=== PATIENT | male | born 2000 | race African-American/Black ===

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

== ENCOUNTER 2018-05-26 17:12 | Emergency (ER) | payer MEDICAID ==
[2018-05-26 17:28] VITALS: BP 124/72
--- NOTE | 2018-05-26 17:41 | EDM.PDOC ---
<Paul Bautista - Last Filed: 05/26/18 17:36> ED HPI GENERAL MEDICAL PROBLEM - General Chief Complaint: Genitourinary Problem Stated Complaint: TROUBLE URINATING Time Seen by Provider: 05/26/18 17:25 Source of Information: Reports: Patient History Limitations: Reports: No Limitations - History of Present Illness INITIAL COMMENTS - FREE TEXT/NARRATIVE: Patient presents reporting urinary frequency causing him to urinate 3-4 times per hour during the day and wakes him up at night occasionally. This has been occuring for the past couple of months. He works at [employer] and the frequent urination is making work difficult. He denies abdominal pain, testicualr pain, hematuria, discharge, fever, chills, or sweats. He is sexually active with one partner but reports using protection. Onset: Other (past couple of months) Associated Symptoms: Reports: No Other Symptoms. Denies: Cough, Fever/Chills, Malaise, Nausea/Vomiting - Related Data Allergies Allergy/AdvReac Type Severity Reaction Status Date / Time No Known Allergies Allergy Verified 05/26/18 17:27 Home Meds: Home Meds Cephalexin [Keflex] 500 mg PO QID #28 capsule 08/05/17 [Rx] Sertraline? 08/05/17 [History] Nitrofurantoin Monohyd/M-Cryst [Macrobid 100 mg Capsule] 100 mg PO BID #10 capsule 05/26/18 [Rx] Past Medical History - Past Health History Medical/Surgical History: Denies Medical/Surgical History Psychiatric History: Reports: ADD, Autism, Depression, Panic Attack, Suicide Attempt Social & Family History - Family History Musculoskeletal: Reports: Arthritis - Tobacco Use Smoking Status *Q: Never Smoker - Caffeine Use Caffeine Use: Reports: Soda, Tea ED ROS GENERAL - Review of Systems Constitutional: Reports: No Symptoms. Denies: Fever, Chills, Malaise, Fatigue, Night Sweats, Diaphoresis Respiratory: Reports: No Symptoms Cardiovascular: Reports: No Symptoms Endocrine: Reports: Polyuria. Denies: Polydypsia GI/Abdominal: Reports: No Symptoms : Reports: Frequency (3-4 times per hour during the day). Denies: Discharge, Dysuria, Hematuria, Pain, Urgency, Urinary Retention ED EXAM, RENAL/ - Physical Exam Exam: See Below Exam Limited By: No Limitations General Appearance: Alert, WD/WN, No Apparent Distress Respiratory/Chest: No Respiratory Distress, Lungs Clear, Normal Breath Sounds Cardiovascular: Regular Rate, Rhythm, No Murmur GI/Abdominal: Normal Bowel Sounds, Soft, Non-Tender, No Mass (Male) Exam: Deferred Course - Vital Signs Last Recorded V/S: Last Vital Signs Temp 98.5 F 05/26/18 17:23 Pulse 87 05/26/18 17:23 Resp 16 05/26/18 17:23 BP 124/72 05/26/18 17:23 Pulse Ox 98 05/26/18 17:23 - Orders/Labs/Meds Orders: Active Orders 24 hr Category Date Time Status CULTURE URINE [RM] Stat Lab 05/26/18 18:31 Ordered UA W/MICROSCOPIC [URIN] Stat Lab 05/26/18 17:40 Ordered Labs: Laboratory Tests 05/26/18 Range/Units 17:40 Urine Color Yellow (Yellow) Urine Appearance Cloudy H (Clear) Urine pH 6.0 (5.0-8.0) Ur Specific [place] > or = 1.030 (1.005-1.030) Urine Protein 2+ H (Negative) Urine Glucose (UA) Negative (Negative) Urine Ketones Trace H (Negative) Urine Occult Blood Trace-intact H (Negative) Urine Nitrite Negative (Negative) Urine Bilirubin 1+ H (Negative) Urine Urobilinogen 1.0 (0.2-1.0) Ur Leukocyte Esterase 1+ H (Negative) Urine RBC 0-5 (0-5) /hpf Urine WBC 50-75 H (0-5) /hpf Urine WBC Clumps Moderate (NOT SEEN) /hpf Ur Epithelial Cells 0-5 (0-5) /hpf Urine Bacteria Moderate H (FEW) /hpf Urine Mucus Moderate H (FEW) /hpf Departure - Departure Disposition: Home, Self-Care 01 Clinical Impression: UTI, Urinary tract infectious disease - Discharge Information Prescriptions: Nitrofurantoin Monohyd/M-Cryst [Macrobid 100 mg Capsule] 100 mg PO BID #10 capsule Referrals: PCP,None [Primary Care Provider] - Soledad Simon MD [Physician] - 1 Week Forms: ED Department Discharge, ED Return to Work/School Form Additional Instructions: Drink plenty of fluids. Take the macrobid 2 times per day for 5 days. Please return if you are worse. - My Orders Last 24 Hours: My Active Orders 05/26/18 17:40 UA W/MICROSCOPIC [URIN] Stat 05/26/18 18:31 CULTURE URINE [RM] Stat - Assessment/Plan Last 24 Hours: My Active Orders 05/26/18 17:40 UA W/MICROSCOPIC [URIN] Stat 05/26/18 18:31 CULTURE URINE [RM] Stat <Melo Machado - Last Filed: 05/26/18 18:41> ED ROS GENERAL - Review of Systems Review Of Systems: See Below ED EXAM, RENAL/ - Physical Exam Exam: See Below Course - Re-Assessments/Exams Free Text/Narrative Re-Assessment/Exam: 05/26/18 18:36 I examined the patient and I agree with Paul's assessment and plan. His UA shows no UTI. Departure - Departure Time of Disposition: 18:40 Condition: Good - Discharge Information *PRESCRIPTION DRUG MONITORING PROGRAM REVIEWED*: Not Applicable *COPY OF PRESCRIPTION DRUG MONITORING REPORT IN PATIENT [place]ILIA: Not Applicable
== END 2018-05-26 18:44 | disposition home or self-care (01) ==
LOC: JD.ED 17:12
DX: N39.0 Urinary tract infection, site not specified (principal); Z79.899 Other long term (current) drug therapy
CPT/HCPCS: 81001; 87086; 99283

== ENCOUNTER 2018-11-27 15:28 | Emergency (ER) | payer SELFPAY ==
[2018-11-27 17:03] LABS: ACETAMINOPHEN 0 ug/mL (10-30)
[2018-11-27 18:49] VITALS: BP 106/55
--- NOTE | 2018-11-27 19:47 | EDM.PDOCBH ---
ED HPI GENERAL MEDICAL PROBLEM - General Chief Complaint: Behavioral/Psych Stated Complaint: [facility] Time Seen by Provider: 11/27/18 16:00 Source of Information: Reports: Patient History Limitations: Reports: No Limitations - History of Present Illness INITIAL COMMENTS - FREE TEXT/NARRATIVE: 18-year-old male arrives via [facility] for evaluation and treatment of a suspected overdose. Reportedly the patient states he told his mother he took 12 50 mg Zoloft tablets one hour prior to arrival in the ER.. Patient has with him a bottle of Zoloft 50 mg tabs #30 prescribed in February. He clearly has not been taking these as prescribed. He is unable to tell me exactly how many were in the bottle . He is unable to me exactly how many he took tonight. He states that he has been having difficulty with the mother of his child. He reports being stressed and angry. States he wanted to sleep and this is why he took the Zoloft. This point he is denying any symptoms. No headaches, abdominal pain, nausea or vomiting. No chest pain. Patient reports this was not a suicide attempt. He is denying being actively suicidal or homicidal at this time. Has been suicidal in the past but denies this currently. Poison control consulted upon arrival to the ER. Recommended monitoring for 8 h for any signs of tachycardia and QT prolongation. Recommend EKG and basic labs. - Related Data Allergies Allergy/AdvReac Type Severity Reaction Status Date / Time No Known Allergies Allergy Verified 05/26/18 17:27 Home Meds: Home Meds Sertraline [Zoloft] 50 mg PO DAILY 06/17/18 [History] Past Medical History - Past Health History Medical/Surgical History: Denies Medical/Surgical History Psychiatric History: Reports: ADD, Autism, Depression, Panic Attack, Suicide Attempt, Suicidal Ideation Social & Family History - Family History Family Medical History: Noncontributory Musculoskeletal: Reports: Arthritis - Tobacco Use Smoking Status *Q: Current Some Day Smoker Years of Tobacco use: 1 Packs/Tins Daily: 0.5 - Caffeine Use Caffeine Use: Reports: Energy Drinks, Soda Other Caffeine Use: daily - Recreational Drug Use Recreational Drug Use: Yes Drug Use in Last 12 Months: No Recreational Drug Type: Reports: Marijuana/Hashish ED ROS GENERAL - Review of Systems Review Of Systems: See Below Cardiovascular: Denies: Chest Pain GI/Abdominal: Denies: Abdominal Pain, Nausea, Vomiting ED EXAM, BEHAVIORAL HEALTH - Physical Exam Exam: See Below Exam Limited By: No Limitations General Appearance: Alert, WD/WN, No Apparent Distress Throat/Mouth: Normal Inspection, Normal Voice, No Airway Compromise Respiratory/Chest: No Respiratory Distress, Lungs Clear, Normal Breath Sounds Cardiovascular: Normal Peripheral Pulses, Regular Rate, Rhythm, No Murmur GI/Abdominal: Normal Bowel Sounds, Soft, Non-Tender Neurological: Alert, Normal Mood/Affect, Normal Cognition Psychiatric: Alert, Normal Affect, Normal Mood. No: Depressed Mood, Tearful, Poor Eye Contact, Uncooperative, Homicidal Thoughts, Suicidal Plan, Suicidal Thoughts Skin Exam: Warm, Dry, Normal color EKG INTERPRETATION EKG Date: 11/27/18 Time: 16:57 Rhythm: NSR Rate (Beats/Min): 57 [place]: Normal P-Wave: Present QRS: Normal ST-T: Normal QT: Normal EKG Interpretation Comments: NSR at 57 bpm. QTc normal at 373. Reviewed by myself and Dr. Rachel. COURSE, BEHAVIORAL HEALTH COMP - Course Vital Signs: Last Vital Signs Temp 97.5 F 11/27/18 15:35 Pulse 65 11/27/18 18:48 Resp 20 11/27/18 18:48 BP 106/55 L 11/27/18 18:48 Pulse Ox 99 11/27/18 18:48 Orders, Labs, Meds: Active Orders 24 hr Category Date Time Status Cardiac Monitoring [RC] . DIRECTED Care 11/27/18 16:09 Active EKG Documentation Completion [RC] ASDIRECTED Care 11/27/18 16:10 Active EKG 12 Lead [EK] Stat Ther 11/27/18 16:09 Ordered Laboratory Tests 11/27/18 11/27/18 11/27/18 Range/Units 16:25 16:25 16:25 WBC 4.31 (4.23-9.07) K/mm3 RBC 4.94 (4.63-6.08) M/mm3 Hgb 13.4 L (13.7-17.5) gm/L Hct 40.9 (40.1-51.0) % MCV 82.8 (79.0-92.2) fl MCH 27.1 (25.7-32.2) pg MCHC 32.8 (32.2-35.5) g/dl RDW Std Deviation 37.5 (35.1-43.9) fL Plt Count 157 L (163-337) K/mm3 MPV 10.6 (9.4-12.3) fl Neut % (Auto) 47.3 (34.0-67.9) % Lymph % (Auto) 42.0 (21.8-53.1) % [place] % (Auto) 7.2 (5.3-12.2) % Eos % (Auto) 2.6 (0.8-7.0) Baso % (Auto) 0.7 (0.1-1.2) % Neut # (Auto) 2.04 (1.78-5.38) K/mm3 Lymph # (Auto) 1.81 (1.32-3.57) K/mm3 [place] # (Auto) 0.31 (0.30-0.82) K/mm3 Eos # (Auto) 0.11 (0.04-0.54) K/mm3 Baso # (Auto) 0.03 (0.01-0.08) K/mm3 Sodium 143 (136-145) mEq/L Potassium 3.7 (3.5-5.1) mEq/L Chloride 104 (98-107) mEq/L Carbon Dioxide 31 (21-32) mEq/L Anion Gap 11.7 (5-15) BUN 15 (7-18) mg/dL Creatinine 1.2 (0.7-1.3) mg/dL Est Cr Clr Drug Dosing 88.20 mL/min Estimated GFR (MDRD) > 60 (>60) mL/min BUN/Creatinine Ratio 12.5 L (14-18) Glucose 92 (74-106) mg/dL Calcium 9.2 (8.5-10.1) mg/dL Total Bilirubin 0.4 (0.2-1.0) mg/dL AST 15 (15-37) U/L ALT 17 (16-63) U/L Alkaline Phosphatase 79 (46-116) U/L Total Protein 7.3 (6.4-8.2) g/dl Albumin 4.1 (3.4-5.0) g/dl Globulin 3.2 gm/dL Albumin/Globulin Ratio 1.3 (1-2) TSH 3rd Generation 0.807 (0.516-4.13) uIU/mL Salicylates 4.1 (2.8-20) mg/dL Urine Opiates Screen (VEMLVP=733) Ur Buprenorphine Scrn (CUTOFF=10) Ur Oxycodone Screen (BOB2KO=117) Urine Methadone Screen (BFB6WE=999) Ur Propoxyphene Screen (FMFKTA=895) Acetaminophen 0 L (10-30) ug/mL Ur Barbiturates Screen (XEGTBE=498) Ur Tricyclics Screen (JFBNOM=355) Ur Phencyclidine Scrn (CUTOFF=25) Ur Amphetamine Screen (LWICPG=474) U Methamphetamines Scrn (WYJUAT=652) U Benzodiazepines Scrn (NFHWWA=255) U Cocaine Metab Screen (LNZWXC=734) U Marijuana (THC) Screen (CUTOFF=50) Ethyl Alcohol 0.00 (0.00) gm% 11/27/18 Range/Units 17:55 WBC (4.23-9.07) K/mm3 RBC (4.63-6.08) M/mm3 Hgb (13.7-17.5) gm/L Hct (40.1-51.0) % MCV (79.0-92.2) fl MCH (25.7-32.2) pg MCHC (32.2-35.5) g/dl RDW Std Deviation (35.1-43.9) fL Plt Count (163-337) K/mm3 MPV (9.4-12.3) fl Neut % (Auto) (34.0-67.9) % Lymph % (Auto) (21.8-53.1) % [place] % (Auto) (5.3-12.2) % Eos % (Auto) (0.8-7.0) Baso % (Auto) (0.1-1.2) % Neut # (Auto) (1.78-5.38) K/mm3 Lymph # (Auto) (1.32-3.57) K/mm3 [place] # (Auto) (0.30-0.82) K/mm3 Eos # (Auto) (0.04-0.54) K/mm3 Baso # (Auto) (0.01-0.08) K/mm3 Sodium (136-145) mEq/L Potassium (3.5-5.1) mEq/L Chloride (98-107) mEq/L Carbon Dioxide (21-32) mEq/L Anion Gap (5-15) BUN (7-18) mg/dL Creatinine (0.7-1.3) mg/dL Est Cr Clr Drug Dosing mL/min Estimated GFR (MDRD) (>60) mL/min BUN/Creatinine Ratio (14-18) Glucose (74-106) mg/dL Calcium (8.5-10.1) mg/dL Total Bilirubin (0.2-1.0) mg/dL AST (15-37) U/L ALT (16-63) U/L Alkaline Phosphatase (46-116) U/L Total Protein (6.4-8.2) g/dl Albumin (3.4-5.0) g/dl Globulin gm/dL Albumin/Globulin Ratio (1-2) TSH 3rd Generation (0.516-4.13) uIU/mL Salicylates (2.8-20) mg/dL Urine Opiates Screen Negative (QLXVLH=692) Ur Buprenorphine Scrn Negative (CUTOFF=10) Ur Oxycodone Screen Negative (VGJ8SA=528) Urine Methadone Screen Negative (EKW7OQ=203) Ur Propoxyphene Screen Negative (SQHWNM=304) Acetaminophen (10-30) ug/mL Ur Barbiturates Screen Negative (QGQKPL=736) Ur Tricyclics Screen Negative (UZTLRN=656) Ur Phencyclidine Scrn Negative (CUTOFF=25) Ur Amphetamine Screen Negative (IMQILB=964) U Methamphetamines Scrn Negative (AIDUTK=935) U Benzodiazepines Scrn Negative (WEWDKS=451) U Cocaine Metab Screen Negative (JFRRSU=493) U Marijuana (THC) Screen Presumptive positive H (CUTOFF=50) Ethyl Alcohol (0.00) gm% Re-Assessment/Re-Exam: Poison control consult and recommended routine labs, EKG and cardiac monitoring. It is now nearly 11 PM. He has been monitored in ER about 7 and half hours. Plan will be to monitor him for another half an hour and if he remains in a normal sinus rhythm will discharge home. Dejan from [facility] has come to the ER to establish a concrete plan with the patient. They do have the [facility] crisis bed available tonight but he declined this. States that he will go home with his girlfriend and she is agreeable to monitoring him. Dejan gave him resources to help get reestablished with [facility]. Discharge instructions as documented. Medical Clearance: 11/27/18 22:56 Patient is medically cleared to go home tonight. Departure - Departure Time of Disposition: 22:50 Disposition: Home, Self-Care 01 Condition: Good Clinical Impression: Overdose - Discharge Information *PRESCRIPTION DRUG MONITORING PROGRAM REVIEWED*: No *COPY OF PRESCRIPTION DRUG MONITORING REPORT IN PATIENT ODILIA: No Referrals: Jeimy Pérez MD [Primary Care Provider] - Forms: ED Department Discharge Additional Instructions: Go to [facility] at 8am tomorrow as planned. Rest. Make sure you are drinking plenty of fluids. Please return to the ER should your symptoms change or worsen. - My Orders Last 24 Hours: My Active Orders 11/27/18 16:09 Cardiac Monitoring [RC] . DIRECTED EKG 12 Lead [EK] Stat 11/27/18 16:10 EKG Documentation Completion [RC] ASDIRECTED - Assessment/Plan Last 24 Hours: My Active Orders 11/27/18 16:09 Cardiac Monitoring [RC] . DIRECTED EKG 12 Lead [EK] Stat 11/27/18 16:10 EKG Documentation Completion [RC] ASDIRECTED
== END 2018-11-27 23:29 | disposition home or self-care (01) ==
LOC: JD.ED 15:28
DX: T43.221A Poisoning by selective serotonin reuptake inhibitors, accidental (unintentional), initial encounter (principal); F17.210 Nicotine dependence, cigarettes, uncomplicated; Z79.899 Other long term (current) drug therapy
CPT/HCPCS: 36415; 80053; 80306; 84443; 85025; 93005; 99285; G0480

== ENCOUNTER 2019-01-21 14:29 | Emergency (ER) | payer SELFPAY ==
[2019-01-21 14:40] VITALS: BP 127/77
--- NOTE | 2019-01-21 15:56 | CR ---
Right hip: AP and frog-leg lateral views of the right hip were obtained. Comparison: No previous study. Joint space within the right hip is maintained. No fracture or other bony abnormality is seen. Partially visualized transitional segment is seen at the lumbosacral junction. Impression: 1. Partially visualized transitional segment at the lumbosacral junction. 2. Two-view right hip study is otherwise unremarkable. Diagnostic code #2
--- NOTE | 2019-01-21 16:27 | EDM.PDOC ---
ED HPI GENERAL MEDICAL PROBLEM - General Chief Complaint: Lower Extremity Injury/Pain Stated Complaint: HIP PAIN Time Seen by Provider: 01/21/19 14:48 Source of Information: Reports: Patient History Limitations: Reports: No Limitations - History of Present Illness INITIAL COMMENTS - FREE TEXT/NARRATIVE: 19yo M comes in today for R hip pain s/p drinking last night for his 19st birthday. He doesn't remember injuring himself as he blacked out last night after drinking. Today he woke up with 6/10 hip pain, 8/10 with movement, still has good ROM, has some difficulty weight bearing. He did not take any medications for pain at home and did not ice the hip. He has never had pain like this before. Right Hip Pain Score (Numeric/FACES): 8 - Related Data Allergies Allergy/AdvReac Type Severity Reaction Status Date / Time No Known Allergies Allergy Verified 05/26/18 17:27 Home Meds: Home Meds Sertraline [Zoloft] 50 mg PO DAILY 06/17/18 [History] Past Medical History - Past Health History Medical/Surgical History: Denies Medical/Surgical History Psychiatric History: Reports: ADD, Autism, Depression, Panic Attack, Suicide Attempt, Suicidal Ideation Social & Family History - Family History Family Medical History: Noncontributory Musculoskeletal: Reports: Arthritis - Tobacco Use Smoking Status *Q: Never Smoker - Caffeine Use Caffeine Use: Reports: Coffee Other Caffeine Use: daily - Recreational Drug Use Recreational Drug Use: No Review of Systems - Review of Systems Review Of Systems: ROS reveals no pertinent complaints other than HPI. ED EXAM, GENERAL - Physical Exam Exam: See Below Exam Limited By: No Limitations General Appearance: Alert, WD/WN, No Apparent Distress Eye Exam: Bilateral Eye: EOMI, Normal Inspection, PERRL Ears: Normal External Exam, Hearing Grossly Normal Nose: Normal Inspection, Normal Mucosa, No Blood Throat/Mouth: Normal Inspection, Normal Lips, Normal Teeth, Normal Gums, Normal Oropharynx, Normal Voice, No Airway Compromise Head: Atraumatic, Normocephalic Neck: Normal Inspection, Supple, Non-Tender, Full Range of Motion Respiratory/Chest: No Respiratory Distress, Lungs Clear, Normal Breath Sounds, No Accessory Muscle Use, Chest Non-Tender Cardiovascular: Normal Peripheral Pulses, Regular Rate, Rhythm, No Edema, No Gallop, No JVD, No Murmur, No Rub Peripheral Pulses: 4+: Posterior Tibial (L), Posterior Tibial (R), Dorsalis Pedis (L), Dorsalis Pedis (R) GI/Abdominal: Normal Bowel Sounds, Soft, Non-Tender, No Organomegaly, No Distention, No Abnormal Bruit, No Mass Extremities: Normal Inspection, Normal Range of Motion, Non-Tender, No Pedal Edema, Normal Capillary Refill. No: Joint Swelling, Increased Warmth, Redness Neurological: Alert, Oriented, CN II-XII Intact, Normal Cognition, Normal Gait, Normal Reflexes, No Motor/Sensory Deficits Psychiatric: Normal Affect, Normal Mood Skin Exam: Warm, Dry, Intact, Normal Color, No Rash Course - Vital Signs Last Recorded V/S: Last Vital Signs Temp 97.8 F 01/21/19 14:37 Pulse 73 01/21/19 14:37 Resp 16 01/21/19 14:37 BP 127/77 01/21/19 14:37 Pulse Ox 100 01/21/19 14:37 - Re-Assessments/Exams Free Text/Narrative Re-Assessment/Exam: 01/21/19 16:27 Hip Xray is unremarkable. At this time, pt does not seem to have fracture and likely this injury is musculoskeletal in nature. Departure - Departure Time of Disposition: 16:27 Disposition: Home, Self-Care 01 Condition: Good Clinical Impression: Hip pain - Discharge Information *PRESCRIPTION DRUG MONITORING PROGRAM REVIEWED*: Not Applicable *COPY OF PRESCRIPTION DRUG MONITORING REPORT IN PATIENT ODILIA: Not Applicable Instructions: Cryotherapy, [id number], Hip Pain Referrals: PCP,None [Primary Care Provider] - Additional Instructions: You were seen in the ED today for R hip pain after not remembering whether you injured it or not. Your Xray did not show any fracture and your physical exam was unremarkable. At this time, it seems you may have strained the muscle, but it is difficult to say without knowing the actual cause of injury. There is no serious injury found at this time, so it is recommended you rest and ice the hip. You can take over the counter ibuprofen for pain and swelling. Please return to ED if new or worsening symptoms.
== END 2019-01-21 16:40 | disposition home or self-care (01) ==
LOC: JD.ED 14:29
DX: M25.551 Pain in right hip (principal); F32.9 Major depressive disorder, single episode, unspecified; F98.8 Other specified behavioral and emotional disorders with onset usually occurring in childhood and adolescence; Z79.899 Other long term (current) drug therapy
CPT/HCPCS: 73502-26-RT; 73502-RT; 99282; 99283-25

== ENCOUNTER 2019-11-07 06:25 | Emergency (ER) | payer SELFPAY ==
[2019-11-07 06:36] VITALS: BP 130/80; PULSE 59
--- NOTE | 2019-11-07 06:47 | EDM.PDOC ---
ED HPI GENERAL MEDICAL PROBLEM - General Chief Complaint: ENT Problem Stated Complaint: TOOTHACHE Time Seen by Provider: 11/07/19 06:30 Source of Information: Reports: Patient History Limitations: Reports: No Limitations - History of Present Illness INITIAL COMMENTS - FREE TEXT/NARRATIVE: Patient has been troubled by a tooth ache off and on for about 3 years upper molar on the left. He has not seen a dentist for this. Only readily identified risk factor is cigarette smoking. There is not been any treatment that he is able to tell me about. It appears that he is not seen a dentist during this intervening time. Left Upper Tooth/Teeth Pain Score (Numeric/FACES): 5 - Related Data Allergies Allergy/AdvReac Type Severity Reaction Status Date / Time No Known Allergies Allergy Verified 11/07/19 06:38 Home Meds: Home Meds Sertraline [Zoloft] 50 mg PO DAILY 06/17/18 [History] Amoxicillin 500 mg PO Q8HR #30 capsule 11/07/19 [Rx] Past Medical History - Past Health History Medical/Surgical History: Denies Medical/Surgical History Psychiatric History: Reports: ADD, Autism, Depression, Panic Attack, Suicide Attempt, Suicidal Ideation Social & Family History - Family History Family Medical History: Noncontributory Musculoskeletal: Reports: Arthritis - Tobacco Use Smoking Status *Q: Current Every Day Smoker - Caffeine Use Caffeine Use: Reports: Coffee Other Caffeine Use: daily ED ROS ENT - Review of Systems Review Of Systems: Comprehensive ROS is negative, except as noted in HPI. ED EXAM, ENT - Physical Exam Exam: See Below Exam Limited By: No Limitations General Appearance: Alert Eye Exam: Bilateral Eye: EOMI, PERRL Ears: Normal External Exam Nose: Normal Inspection Mouth/Throat: Other (There is tenderness to light tapping with tongue blade tooth #14 and #15 is noted to be either broken or partially erupted. No evidence of odontogenic soft tissue infection. No abscess is evident.) Head: Atraumatic, Normocephalic Neck: Supple Respiratory/Chest: No Respiratory Distress Cardiovascular: Regular Rate, Rhythm GI/Abdominal: Soft, Non-Tender Back: Normal Inspection Extremities: Normal Inspection Neurological: Alert, Oriented Psychiatric: Normal Affect Skin: Warm, Dry Course - Vital Signs Last Recorded V/S: Last Vital Signs Temp 36.5 C 11/07/19 06:32 Pulse 59 L 11/07/19 06:32 Resp 18 11/07/19 06:32 BP 130/80 11/07/19 06:32 Pulse Ox 100 11/07/19 06:32 Departure - Departure Time of Disposition: 06:43 Disposition: Home, Self-Care 01 Condition: Good Clinical Impression: Tooth ache, Tobacco abuse counseling - Discharge Information Prescriptions: Amoxicillin 500 mg PO Q8HR #30 capsule Referrals: PCP,None [Primary Care Provider] - Additional Instructions: You have a tooth ache which needs attention. We are giving you information for getting into see a dentist and this should be done as early as possible preferably Saturday or Saturday of this coming week. We are giving you an antibiotic amoxicillin which is going to be effective in combating the infection involved with the painful tooth. This will also moderate the pain. You are also urged to not take tobacco in any form including vaping as this is a definite risk factor for dental and gum disease. Sepsis Event Note - Evaluation Sepsis Screening Result: No Definite Risk - Focused Exam Vital Signs: Vital Signs Temp Pulse Resp BP Pulse Ox 11/07/19 06:32 36.5 C 59 L 18 130/80 100 Date Exam was Performed: 11/07/19 Time Exam was Performed: 06:40
== END 2019-11-07 07:08 | disposition home or self-care (01) ==
LOC: JD.ED 06:25
DX: K08.89 Other specified disorders of teeth and supporting structures (principal); Z71.6 Tobacco abuse counseling; F17.210 Nicotine dependence, cigarettes, uncomplicated; F84.0 Autistic disorder; F32.9 Major depressive disorder, single episode, unspecified; Z79.899 Other long term (current) drug therapy
CPT/HCPCS: 99282

== ENCOUNTER 2020-01-04 19:28 | Emergency (ER) | payer SELFPAY ==
[2020-01-04 20:46] VITALS: BP 136/76; PULSE 81
--- NOTE | 2020-01-04 21:17 | EDM.PDOCBH ---
ED HPI GENERAL MEDICAL PROBLEM - General Chief Complaint: Behavioral/Psych Stated Complaint: MENTAL HEALTH Time Seen by Provider: 01/04/20 21:13 Source of Information: Reports: Patient, Police History Limitations: Reports: No Limitations - History of Present Illness INITIAL COMMENTS - FREE TEXT/NARRATIVE: 19-year-old male presents to the ED for psychiatric evaluation. Patient reports that he left a older female whom he had been living with i.e. she was age 28. It into trouble and is currently incarcerated. He therefore lost his place to stay. 2 weeks ago he had to move in with his mother and stepfather. He and the stepfather have never really gotten to know each other although his mother has been for 3 years. He grew up in [place] [place] [facility]. Currently employed at [employer] full-time. He states he does not on a motor vehicle. He has not asked his mother or stepfather for any money. In fact he is giving his mother money for groceries etc. In the home tonight there was water dripping on the floor and the younger children that are present in the home were stepping in it. He thought it would be a good idea to place a ceiling tile that was up against the wall over top of the puddle on the floor to prevent the other children from waiting through the water. Fairly this upset his stepfather immensely which precipitated verbal dispute. During this verbal dispute he happened to order that he wished he were and that he was going to kill himself. Precipitated his mother in calling the police who came to the home and thus brought him to the ED for psychiatric evaluation. She recognizes that he is not suicidal but said these words out of severe frustration and a sense of no value or power in his mother's home. [place] betrayed as the mother seem to support her and not him his decision making at the home. Woke for a lengthy period of time and it is apparent that he is not suffering depression or generalized anxiety. He is not influence of any alcohol or drugs. He has had a cold off. Time and agrees that it is okay to return home and apparently his mother is in agreement with this as well. Ports that he does suffer from generalized anxiety disorder Zoloft or sertraline 50 mg once daily in the past which worked well for him. Okay when he takes it at bedtime it seems to help him sleep. His sleep is partially disrupted by his shift work at work as he sometimes has to work till close which is midnight or 1:00 in the morning. Is been off the Zoloft for several months as he has not sought out Medicaid here [place] which would help pay for his medication. At present it would be too expensive for him. Onset: Today Onset Date: 01/04/20 Onset Time: 20:00 Duration: Minutes: Location: Reports: Other (Apparently he uttered suicidal ideation at his mother' s home during a verbal dispute with his stepfather. Precipitated his mother and calling the police out of concerns for him being suicidal.) Quality: Reports: Other (Really not feeling suicidal and indicates that he said these words out of frustration) Severity: Mild Improves with: Reports: Other (Is much better when he has had time to think about things and cool off.) Worsens with: Reports: None Context: Denies: Activity, Exercise, Lifting, Sick Contact, Trauma, Other Associated Symptoms: Reports: No Other Symptoms Treatments FORENSIC COMPUTER EXAMINER: Reports: Other (see below) (None.) - Related Data Allergies Allergy/AdvReac Type Severity Reaction Status Date / Time No Known Allergies Allergy Verified 01/04/20 20:46 Home Meds: Home Meds Sertraline [Zoloft] 50 mg PO BEDTIME #30 tab 01/04/20 [Rx] Past Medical History - Past Health History Medical/Surgical History: Denies Medical/Surgical History HEENT History: Reports: None Cardiovascular History: Reports: None Respiratory History: Reports: None Gastrointestinal History: Reports: None Genitourinary History: Reports: None Musculoskeletal History: Reports: Other (See Below) Other Musculoskeletal History: Pt has torn tendon in the right pinky finger causing it to be permanently bent. Neurological History: Reports: None Psychiatric History: Reports: ADD, Anxiety, Autism, Depression, Panic Attack, Suicide Attempt, Suicidal Ideation Endocrine/Metabolic History: Reports: None Hematologic History: Reports: None Immunologic History: Reports: None Oncologic (Cancer) History: Reports: None Dermatologic History: Reports: None - Infectious Disease History Infectious Disease History: Reports: None Social & Family History - Family History Family Medical History: Noncontributory Musculoskeletal: Reports: Arthritis - Tobacco Use Smoking Status *Q: Current Every Day Smoker Years of Tobacco use: 2 Packs/Tins Daily: 0.5 - Caffeine Use Caffeine Use: Reports: Soda Other Caffeine Use: daily - Recreational Drug Use Recreational Drug Use: No - Living Situation & Occupation Living situation: Reports: Single Occupation: Employed (Currently residing at his mother and stepfather's home with other younger siblings for the last 2 weeks) ED ROS GENERAL - Review of Systems Review Of Systems: See Below Constitutional: Reports: Fatigue. Denies: Fever, Chills, Malaise, Weakness, Decreased Appetite, Weight Loss HEENT: Reports: No Symptoms Respiratory: Reports: No Symptoms Cardiovascular: Reports: No Symptoms Endocrine: Reports: No Symptoms GI/Abdominal: Reports: No Symptoms : Reports: No Symptoms Musculoskeletal: Reports: No Symptoms Skin: Reports: No Symptoms Neurological: Reports: No Symptoms Psychiatric: Reports: Anxiety Hematologic/Lymphatic: Reports: No Symptoms ED EXAM, BEHAVIORAL HEALTH - Physical Exam Exam: See Below Exam Limited By: No Limitations General Appearance: Alert, WD/WN, No Apparent Distress, Other (Signs are all normal.) Eye Exam: Bilateral Eye: Normal Inspection, PERRL Throat/Mouth: Normal Inspection, Normal Lips, Normal Oropharynx Head: Atraumatic, Normocephalic Neck: Normal Inspection, Supple, Non-Tender, Full Range of Motion. No: Lymphadenopathy (L), Lymphadenopathy (R) Respiratory/Chest: No Respiratory Distress, Lungs Clear, Normal Breath Sounds, No Accessory Muscle Use Cardiovascular: Normal Peripheral Pulses, Regular Rate, Rhythm, No Edema, No Gallop, No Murmur, No Rub Extremities: Normal Inspection, Normal Range of Motion, Non-Tender, Other ( Signs of intravenous drug abuse in the past or recent.) COURSE, BEHAVIORAL HEALTH COMP - Course Vital Signs: Last Vital Signs Temp 36.5 C 01/04/20 20:43 Pulse 81 01/04/20 20:43 Resp 16 01/04/20 20:43 BP 136/76 01/04/20 20:43 Pulse Ox 100 01/04/20 20:43 Re-Assessment/Re-Exam: 19-year-old male presents the ED at the request of police officers for psychiatric evaluation after uttering suicidal ideation in his mother's and stepfather's home earlier this evening. It appears that there was an altercation that occurred at the home secondary to his decision to place a ceiling tile over top of a puddle on the floor. This irritated the heck out of his stepfather who he does not get along with very well anyways and this precipitated a verbal dispute. He is betrayed because his mother seem to side with her instead of him. He states that he did alter suicidal ideation in terms of I wish I were and I am going to kill myself. However when she is away from the situation he identifies that he said these words out of sense of frustration and feeling that he had no say in the home even though he is age 19. He has been residing there for the last 2 weeks and working full-time at a local restaurant but does not have enough money to rent an apartment on his own. He feels somewhat trapped. Feels he has no seeing any decisions at home even though he is 19 years of age. However at this time he is not suicidal and has no suicidal ideation. He therefore will be discharged home after cooling off. Apparently his mother is willing to take him back into the house. Will be discharged from the ED with a taxi voucher since he does not have a car any way of getting back home. I did write a prescription for Zoloft 50 mg once daily which he has used in the past for anxiety relief and to help sleep. He is not sure if he can find the funds to fill this prescription. He will have to look into getting Medicaid through [facility]. He was previously on the same medication when he lived in [facility]. Departure - Departure Time of Disposition: 21:13 Disposition: Home, Self-Care 01 Condition: Fair Clinical Impression: Generalized anxiety disorder - Discharge Information *PRESCRIPTION DRUG MONITORING PROGRAM REVIEWED*: Not Applicable *COPY OF PRESCRIPTION DRUG MONITORING REPORT IN PATIENT ODILIA: Not Applicable Prescriptions: Sertraline [Zoloft] 50 mg PO BEDTIME #30 tab Instructions: Generalized Anxiety Disorder, Adult Referrals: PCP,None [Primary Care Provider] - Forms: ED Department Discharge Additional Instructions: Evaluation in the emergency room today at the request of local police officers due to domestic dispute with your stepfather and mother marti. You ordered that you that you were which was interpreted as suicidal ideation. As we discussed you said this out of anger and frustration with the situation with your mother and stepfather where you are residing at this time. This worker summoned by her mother and you were brought to the ED for medical clearance evaluation or psychiatric evaluation. At this time there is no signs that you are truly suicidal or suffering from major depression. As you noted you have a problem with generalized anxiety disorder and were previously on Zoloft once daily. I would suggest to return to this medication once daily at bedtime which will help impulse control and generalized anxiety disorder. You should contact social work instructor in regards to applying for Medicaid so that you can get your medication for $2 a month. You feel you are safe to return home and therefore I will release you from the hospital to home. I agree with timeout to let cooler heads prevail between yourself and your mother and stepfather at this time. Return to the ED if any further problems occur. Sepsis Event Note - Evaluation Sepsis Screening Result: No Definite Risk - Focused Exam Vital Signs: Vital Signs Temp Pulse Resp BP Pulse Ox 01/04/20 20:43 36.5 C 81 16 136/76 100 Date Exam was Performed: 01/05/20 Time Exam was Performed: 01:52
== END 2020-01-04 21:50 | disposition home or self-care (01) ==
LOC: JD.ED 19:28
DX: F41.1 Generalized anxiety disorder (principal); F32.9 Major depressive disorder, single episode, unspecified; F17.210 Nicotine dependence, cigarettes, uncomplicated; Z79.899 Other long term (current) drug therapy
CPT/HCPCS: 99283; 99284

== ENCOUNTER 2022-01-31 19:00 | Emergency (ER) | payer SELFPAY ==
[2022-01-31 19:11] VITALS: BP 118/76; PULSE 72
== END 2022-01-31 20:23 | disposition home or self-care (01) ==
LOC: JD.ED 19:00
DX: K59.00 Constipation, unspecified (principal); K21.9 Gastro-esophageal reflux disease without esophagitis; Z72.0 Tobacco use
CPT/HCPCS: 74018; 74018-26; 99283; 99284